=== PATIENT | female | born 1985 | race Hispanic/Latino ===

== ENCOUNTER 2021-02-11 10:26 | Inpatient (IN) | payer OTHER ==
--- NOTE | 2021-02-12 00:14 | NUR ---
PT WAS SWABBED FOR COVID 19
[2021-02-12] MEDS ORDERED: COMPLETENATE T1 EACH PO (00:34)
--- NOTE | 2021-02-12 10:16 | PR ---
[facility] [address] [facility] [place] [address] Signed Progress Notes IP Datetime Report Generated by CPN: 02/12/2021 10:16 PROGRESS NOTES: [id number] Impression: Normal Progression of Labor Plan: Continue Present Management VITAL SIGNS: [id number] Vital Signs: Reviewed; Within Normal Limits EXAM: [id number] Dilatation: 2.5 Effacement: 50 Station: -2 Contractions: irregular, mild MEMBRANES: [id number] Membranes Status: Ruptured Comments: Doing well, copntracitosn getting a little stronger, just had SROM. WIll continue monitoring. FETUS A: [id number] FHR Baseline: 135 Variability: Moderate 6-25bpm Accelerations: 15X15 FETUS B: [id number] Signing Physician: Lynette Herman MD Copies: ~ *Electronically Signed* 02/12/21 1016 LYNETTE HERMAN MD PATIENT NAME: SERJIO MCKEON PROGRESS NOTE DATE OF : 83 PHYSICIAN: LYNETTE HERMAN MD RPT #: [id number] REPORT IS CONFIDENTIAL AND NOT TO BE RELEASED WITHOUT AUTHORIZATION
--- NOTE | 2021-02-12 13:18 | PR ---
[facility] [address] [facility] [place], [place] [address] Signed Progress Notes IP Datetime Report Generated by CPN: 02/12/2021 13:18 PROGRESS NOTES: [id number] Impression: Normal Progression of Labor Plan: Anesthesia Consult VITAL SIGNS: [id number] Vital Signs: Reviewed; Within Normal Limits EXAM: [id number] Dilatation: 4.0 Effacement: 80 Station: -2 Contractions: irregular, mild MEMBRANES: [id number] Membranes Status: Ruptured Comments: Patient geting more uncomfortable, would like Epidural - Anesthesia called FETUS A: [id number] FHR Baseline: 135 Variability: Moderate 6-25bpm Accelerations: 15X15 FETUS B: [id number] Signing Physician: Lynette Herman MD Copies: ~ *Electronically Signed* 02/12/21 1318 LYNETTE HERMAN MD PATIENT NAME: SERJIO MCKEON PROGRESS NOTE DATE OF : 83 PHYSICIAN: LYNETTE HERMAN MD RPT #: [id number] REPORT IS CONFIDENTIAL AND NOT TO BE RELEASED WITHOUT AUTHORIZATION
--- NOTE | 2021-02-13 10:27 | PR ---
[facility] [address] [place] [address] Signed PP Progress Notes Datetime Report Generated by CPN: 02/13/2021 10:27 SUBJECTIVE: [id number] Pain: Within Normal Limits Nausea/Vomiting: Denies Vital Signs: [id number] Vital Signs: Reviewed; Within Normal Limits Notable Details: PP Hgb/HCt = 11.7/35.0 EXAM: Ongoing Abdomen/Uterus: Normal Lochia: Normal Extremities: Normal IMPRESSION/PLAN/PROCEDURES: [id number] Impression: Normal Progression Plan: Discharge Procedures: None Progress Notes: Doing well, without complaint, wants to go home today. Signing Physician: Lynette Herman MD Copies: ~ *Electronically Signed* 02/13/21 1027 LYNETTE HERMAN MD PATIENT NAME: SERJIO MCKEON PROGRESS NOTE DATE OF : 83 PHYSICIAN: LYNETTE HERMAN MD RPT #: [id number] REPORT IS CONFIDENTIAL AND NOT TO BE RELEASED WITHOUT AUTHORIZATION
== END 2021-02-13 18:30 | disposition home or self-care (01) | DRG 807 ==
LOC: FBC 23:56
PROVIDERS: ADMIT General Practice; ATTEND General Practice
PROC: 10E0XZZ Delivery of Products of Conception, External Approach (ICD-10-PCS; principal; 2021-02-12)
PROC: 0KQM0ZZ Repair Perineum Muscle, Open Approach (ICD-10-PCS; 2021-02-12)
PROC: 10E0XZZ Delivery of Products of Conception, External Approach (ICD-10-PCS; 2021-02-12)
PROC: 3E0DXGC Introduction of Other Therapeutic Substance into Mouth and Pharynx, External Approach (ICD-10-PCS; 2021-02-12)
PROC: 3E0R3BZ Introduction of Anesthetic Agent into Spinal Canal, Percutaneous Approach (ICD-10-PCS; 2021-02-12)
PROC: 00HU33Z Insertion of Infusion Device into Spinal Canal, Percutaneous Approach (ICD-10-PCS; 2021-02-12)
DX: O70.1 Second degree perineal laceration during delivery (principal); Z37.0 Single live birth; Z3A.40 40 weeks gestation of pregnancy
CPT/HCPCS: 01960; 85027; A9270; C9803; J2405; J2590; J2795; U0003

== ENCOUNTER 2024-09-05 18:31 | Emergency (ER) | payer OTHER ==
[~2024-09-05] VITALS: Ht 157.5 cm; Wt 76.0 kg
[~2024-09-05 18:31] MED LIST: COMPLETENATE T1 EACH PO
[2024-09-05 19:10] LABS: BASOPHILS 1.3 % (0.1-1.2); EOSINOPHILS 2.9 % (0.7-5.8); LYMPHOCYTES 20.6 % (19.3-51.7); MCH 29.1 PG (25.6-32.2); MCHC 33.6 g/dL (32.2-35.5); MCV 86.7 fL (79.4-94.8); MONOCYTES 7.2 % (4.7-12.5); NEUTROPHILS 67.9 % (34.0-71.1); RBC 4.60 M/uL (3.93-5.22)
[2024-09-05 19:27] LABS: ALT (SGPT) 48.0 U/L (14-59); AST (SGOT) 27.0 U/L (15-37); GLOMERULAR FILTRATION RATE,EST 87.0 mL/min (>60); PROTEIN, TOTAL 7.0 g/dL (6.4-8.2); UREA NITROGEN 20.0 mg/dL (7-18)
[2024-09-05] MEDS ORDERED: TRIMETHOPRIM/SULFAMETHOXAZOLE 1 EA TAB PO ONE (19:30)
[2024-09-05] MEDS ORDERED: TRIMETHOPRIM/SULFAMETHOXAZOLE 1 EA HOME.PACK PO ONE (20:00)
[2024-09-05] MEDS ORDERED: BACTRIM DS TAB1 EACH PO (20:01)
[2024-09-05 20:28] VITALS: BP 113/56
== END 2024-09-05 20:29 | disposition home or self-care (01) ==
LOC: ED 18:31
PROVIDERS: Internal Medicine
DX: L02.415 Cutaneous abscess of right lower limb (principal)
CPT/HCPCS: 10060; 36415; 80053; 84703; 85025; 87205; 99283; A9270

== ENCOUNTER 2024-09-08 19:45 | Emergency (ER) | payer OTHER ==
[~2024-09-08] VITALS: Ht 157.5 cm; Wt 76.0 kg
[~2024-09-08 19:45] MED LIST changes: +BACTRIM DS TAB1 EACH PO
--- OUTSIDE RECORDS SUMMARY | 2024-09-08 19:52 | XMS ---
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 Current FAMILY PHONE: [phone] Lucille has no Care Guidelines for this patient. EChristiano VISIT COUNT (12 MO.) [address] [place] [address] TOTAL 2 NOTE: Visits indicate total known visits. ED/UCC VISIT TRACKING (12 MO.) 09/08/2024 19:45 [facility] [place] TYPE: Emergency COMPLAINT: - ABCESS 09/05/2024 18:33 [facility] [place] TYPE: Emergency COMPLAINT: - RT LEG SWOLLEN/RED DIAGNOSES: - Cutaneous abscess of right lower limb - Other specified soft tissue disorders INPATIENT VISIT TRACKING (12 MO.) No inpatient visits to display in this time frame [email or web address]
[2024-09-08] MEDS ORDERED: CIPRO500 MG PO (20:55)
[2024-09-08] MEDS ORDERED: DOXYCYCLINE HY100 MG PO (20:55)
[2024-09-08] MEDS ORDERED: HYDROCODON-ACE1 EA10 PO (20:55)
[2024-09-08] MEDS ORDERED: DOXYCYCLINE HYCLATE 100 MG CAP PO ONE (21:00)
[2024-09-08] MEDS ORDERED: HYDROCODONE BIT/ACETAMINOPHEN 5/325 MG 1 TAB HOME.PACK PO ONE (21:00)
[2024-09-08] MEDS ORDERED: CIPROFLOXACIN 500 MG TAB PO ONE (21:00)
[2024-09-08 21:22] VITALS: BP 112/54
== END 2024-09-08 21:24 | disposition home or self-care (01) ==
LOC: ED 19:45
DX: L03.115 Cellulitis of right lower limb (principal); Z79.2 Long term (current) use of antibiotics
CPT/HCPCS: A9270